=== PATIENT | male | born 1965 | race Two or more races ===

== ENCOUNTER 2017-10-03 09:31 | Inpatient (IN) | payer MEDICAID ==
[2017-10-03] MEDS ORDERED: NS 1,000 ML IV ONE ×2 (10:14→11:25)
[2017-10-03] MEDS ORDERED: ONDANSETRON 4 MG/2 ML VIAL IVP ONE ×2 (10:14→12:09)
[2017-10-03] MEDS ORDERED: LORazepam 2 MG/ML INJ IVP ONE (10:22)
--- NOTE | 2017-10-03 10:25 | EDPHY ---
H & P Time Seen by Provider: 10/03/17 10:10 HPI/ROS: CHIEF COMPLAINT: Vomiting HISTORY OF PRESENT ILLNESS: 52-year-old male presents with a 3 week history of vomiting. Onset of nausea and vomiting 3 weeks ago, having difficulty keeping oral fluids down since then. Associated with epigastric burning and loose stools. He feels hot during the episodes of vomiting, but no documented fever. Denies abdominal pain. No prior similar symptoms. He has a history of heavy alcohol use, but has been sober for past 4 months. REVIEW OF SYSTEMS: Constitutional: No fever, no chills Eyes: No visual changes ENT: No sore throat Respiratory: No cough, no shortness of breath Cardiac: No chest pain Gastrointestinal: no abdominal pain Genitourinary: No hematuria, no dysuria Musculoskeletal: No myalgias Skin: No rash Neurological: No headache Psychiatric: No depression Past Medical/Surgical History: Denies Social History: Homeless Smoking Status: Current every day smoker Physical Exam: General Appearance: Alert, pleasant Eyes: Pupils equal and round, no conjunctival pallor or injection ENT, Mouth: Mucous membranes moist Neck: Normal inspection Respiratory: Lungs are clear to auscultation Cardiovascular: Regular rate and rhythm Gastrointestinal: Abdomen is soft, mild epigastric tenderness Neurological: A&O, resting tremor in hands, nonfocal, normal gait Skin: Warm and dry, no rash Extremities: Nontender, no pedal edema Psychiatric: Mood and affect normal Constitutional: Initial Vital Signs Temperature (C) 36.5 C 10/03/17 09:59 Heart Rate 110 H 10/03/17 09:59 Respiratory Rate 16 10/03/17 09:59 Blood Pressure 192/172 H 10/03/17 09:59 O2 Sat (%) 97 10/03/17 09:59 O2 Delivery Mode Room Air Allergies/Adverse Reactions: acetaminophen [From Tylenol] Allergy (Verified 10/03/17 14:46) aspirin Allergy (Verified 10/03/17 14:46) ENVIRONMENTAL Allergy (Mild, Uncoded 10/03/17 09:58) Other-Enter Comments Home Medications: Medication Instructions Recorded NK [No Known Home Meds] 10/03/17 Medical Decision Making - Diagnostics Imaging Results: Abdomen Ultrasound 10/03/17 11:11 Impression: 1. No acute findings. 2. Fatty liver. Findings discussed with ELVIN KEY 10/03/2017 at 11:53. ED Course/Re-evaluation: This patient presents with prolonged vomiting. On physical exam, he does not appear dehydrated and he has a benign abdominal exam. IV normal saline 1 L and Zofran 4 mg IV given. Ativan 0.5 mg IV given because of a resting tremor in his hands and for vomiting. The tremors are concerning for alcohol withdrawal, though he denies alcohol use in the last 4 months. Right upper quadrant ultrasound ordered for hyperbilirubinemia. Noon-laboratory studies and ultrasound results discussed with the patient. He continues to feel nauseated. Zofran 4 mg IV and Phenergan 12.5 mg IV given. Will reassess after meds. Still vomiting after Zofran and Phenergan IV. Abdominal exam remains benign. Protonix 40 mg IV given and will plan to admit the patient for intractable vomiting. Clinical scenario consistent with acute gastritis, no evidence of surgical abdomen or need for CT scan. Hospitalist service was consulted for admission. Differential Diagnosis: Differential diagnosis includes though it is not limited to appendicitis, cholecystitis, diverticulitis, pyelonephritis, bowel perforation, small bowel obstruction. - Data Points Laboratory Results: Laboratory Results 10/03/17 10:15 10/03/17 10:15 Medications Given: Folic Acid (Folic Acid) 1 mg PO DAILY RONNY Stop: 04/02/18 08:59 Last Admin: 10/04/17 09:29 Dose: 1 mg Sodium Chloride (Ns) 1,000 mls @ 75 mls/hr IV CONT RONNY Stop: 04/01/18 15:14 Last Admin: 10/04/17 09:27 Dose: 1,000 mls Thiamine HCl 500 mg/ Sodium (Chloride) 255 mls @ 255 mls/hr IV DAILY RONNY Stop: 10/07/17 08:59 Last Admin: 10/04/17 09:28 Dose: 255 mls Lorazepam (Ativan) 1 mg PO Q4HRS PRN PRN Reason: Anxiety, Able to Take PO Stop: 04/01/18 15:07 Last Admin: 10/04/17 10:59 Dose: 1 mg Ondansetron HCl (Zofran) 4 mg IVP Q4HRS PRN PRN Reason: Nausea/Vomiting, Can't Take PO Stop: 04/02/18 02:59 Last Admin: 10/04/17 10:59 Dose: 4 mg Pantoprazole Sodium (Protonix) 40 mg IVP BID RONNY Stop: 04/01/18 20:59 Last Admin: 10/04/17 09:29 Dose: 40 mg Discontinued Medications Sodium Chloride (Ns) 1,000 mls @ 0 mls/hr IV ONCE ONE PRN Reason: Wide Open Stop: 10/03/17 10:15 Last Admin: 10/03/17 10:16 Dose: 1,000 mls Sodium Chloride (Ns) 1,000 mls @ 0 mls/hr IV ONCE ONE; Wide Open PRN Reason: Protocol Stop: 10/03/17 11:26 Last Admin: 10/03/17 11:41 Dose: 1,000 mls Magnesium Sulfate (Magnesium Sulf 2 Gm (Premix)) 50 mls @ 50 mls/hr IV ONCE ONE Stop: 10/03/17 17:49 Last Admin: 10/03/17 18:33 Dose: 50 mls Lorazepam (Ativan Injection) 0.5 mg IVP EDNOW ONE Stop: 10/03/17 10:23 Last Admin: 10/03/17 10:53 Dose: 0.5 mg Ondansetron HCl (Zofran) 4 mg IVP EDNOW ONE Stop: 10/03/17 10:15 Last Admin: 10/03/17 10:16 Dose: 4 mg Ondansetron HCl (Zofran) 4 mg IVP EDNOW ONE Stop: 10/03/17 12:10 Last Admin: 10/03/17 12:42 Dose: 4 mg Pantoprazole Sodium (Protonix) 40 mg PO EDNOW ONE Stop: 10/03/17 13:24 Last Admin: 10/03/17 14:00 Dose: 40 mg Pantoprazole Sodium (Protonix) 40 mg IVP EDNOW ONE Stop: 10/03/17 14:21 Last Admin: 10/03/17 14:27 Dose: Not Given Promethazine HCl (Phenergan) 12.5 mg IVP EDNOW ONE Stop: 10/03/17 12:10 Last Admin: 10/03/17 12:41 Dose: 12.5 mg Departure - Departure Disposition: [facility] Acute Clinical Impression: Acute gastritis Qualifiers: Gastritis type: unspecified gastritis Gastritis bleeding: without bleeding Qualified Code(s): K29.00 - Acute gastritis without bleeding Condition: Good
[2017-10-03 10:45] LABS: PLATELET COUNT 210 10^3/uL (150-400)
[2017-10-03] MEDS ORDERED: PROMETHAZINE HCL 25 MG/ML INJ IVP ONE (12:09)
[2017-10-03] MEDS ORDERED: PANTOPRAZOLE SODIUM 40 MG TAB PO ONE (13:23)
[2017-10-03] MEDS ORDERED: PANTOPRAZOLE SODIUM 40 MG VIAL IVP ONE (14:20)
--- NOTE | 2017-10-03 14:41 | ASMTLACE ---
JIM Acuity / Level of Answers: Yes Care: Did the patient have an inpatient admission? # of Emergency department Answers: 1-2 visits in the last 6 months Social determinants Answers: Homelessness (street, [facility]) Score: 7 Date Signed: 10/03/2017 02:40 PM Electronically Signed By:Keeley Quintana RN
[2017-10-03] MEDS ORDERED: PROTOCOL MAGNESIUM 1 DOSE IV PRN (15:07)
[2017-10-03] MEDS ORDERED: PROTOCOL POTASSIUM 1 DOSE MISC PRN (15:07)
[2017-10-03] MEDS ORDERED: LORazepam 2 MG/ML INJ IVP PRN (15:08)
[2017-10-03] MEDS ORDERED: MAGNESIUM SULF 2 GM/WATER 50 ML IV ONE (16:50)
--- NOTE | 2017-10-03 16:57 | PDGENHP ---
History and Physical - Chief Complaint EMESIS, MALAISE - History of Present Illness This is a 52 yo male with hx of homelessness and alcoholism who p/w worsening nausea and emesis and inability to keep PO downs for a few days. His last drink was on 09/27 and he appears to be in active WD. He feels cold, he is diaphoretic, he is tremulous. He reports a non productive cough x several days and feeling SOB. He denies fevers. He does not have leukocytosis. He is on RA. A CXR was not done. He denies any urinary sx's. BP is normal. He has mild tachycardia. RR is normal. He is not the best historian. He also c/o abd pain. No Diarrhea. No constipation. An abd US did not show acute pathology PMHx: Homelessness Alcoholism tobacco use PSHx: unknown SocHx: +Tobacco, +ETOH, homelessness FmHx: NC Lab/Data: reviewed Lipase normal No leukocytosis CMP Ok ABD US per above History Information - Allergies/Home Medication List Allergies/Adverse Reactions: acetaminophen [From Tylenol] Allergy (Verified 10/03/17 14:46) aspirin Allergy (Verified 10/03/17 14:46) ENVIRONMENTAL Allergy (Mild, Uncoded 10/03/17 09:58) Other-Enter Comments Home Medications: NK [No Known Home Meds] 10/03/17 [Last Taken Unknown] I have personally reviewed and updated: medical history, social history - Social History Smoking Status: Current every day smoker Review of Systems Review of Systems: ROS: 10pt was reviewed & negative except for what was stated in HPI & below Physical Exam Physical Exam: Temp Pulse Resp BP Pulse Ox 36.7 C 88 18 139/98 H 95 10/03/17 16:00 10/03/17 16:00 10/03/17 16:00 10/03/17 16:00 10/03/17 16:00 Constitutional: no apparent distress Eyes: PERRL, EOMI Ears, Nose, Mouth, Throat: dry mucous membranes Cardiovascular: tachycardia, No JVD, No edema Respiratory: no respiratory distress, reduced air movement, expiratory wheeze Gastrointestinal: normoactive bowel sounds Skin: warm Musculoskeletal: full muscle strength Neurologic: AAOx3, other (tremulous) Psychiatric: interacting appropriately, anxious, No encephalopathic Lymph, Heme, Immunologic: No petechiae Lab Data & Imaging Review 10/03/17 10:15 10/03/17 10:15 WBC 6.19 10^3/uL (3.80-9.50) 10/03/17 10:15 RBC 5.00 10^6/uL (4.40-6.38) 10/03/17 10:15 Hgb 15.3 g/dL (13.7-17.5) 10/03/17 10:15 Hct 43.4 % (40.0-51.0) 10/03/17 10:15 MCV 86.8 fL (81.5-99.8) 10/03/17 10:15 MCH 30.6 pg (27.9-34.1) 10/03/17 10:15 MCHC 35.3 g/dL (32.4-36.7) 10/03/17 10:15 RDW 15.7 % (11.5-15.2) H 10/03/17 10:15 Plt Count 210 10^3/uL (150-400) 10/03/17 10:15 MPV 10.4 fL (8.7-11.7) 10/03/17 10:15 Neut % (Auto) 70.9 % (39.3-74.2) 10/03/17 10:15 Lymph % (Auto) 17.6 % (15.0-45.0) 10/03/17 10:15 [place] % (Auto) 10.2 % (4.5-13.0) 10/03/17 10:15 Eos % (Auto) 0.2 % (0.6-7.6) L 10/03/17 10:15 Baso % (Auto) 0.8 % (0.3-1.7) 10/03/17 10:15 Nucleat RBC Rel Count 0.0 % (0.0-0.2) 10/03/17 10:15 Absolute Neuts (auto) 4.39 10^3/uL (1.70-6.50) 10/03/17 10:15 Absolute Lymphs (auto) 1.09 10^3/uL (1.00-3.00) 10/03/17 10:15 Absolute Monos (auto) 0.63 10^3/uL (0.30-0.80) 10/03/17 10:15 Absolute Eos (auto) 0.01 10^3/uL (0.03-0.40) L 10/03/17 10:15 Absolute Basos (auto) 0.05 10^3/uL (0.02-0.10) 10/03/17 10:15 Absolute Nucleated RBC 0.00 10^3/uL (0-0.01) 10/03/17 10:15 Immature Gran % 0.3 % (0.0-1.1) 10/03/17 10:15 Immature Gran # 0.02 10^3/uL (0.00-0.10) 10/03/17 10:15 Sodium 137 mEq/L (135-145) 10/03/17 10:15 Potassium 4.0 mEq/L (3.5-5.2) 10/03/17 10:15 Chloride 100 mEq/L (97-110) 10/03/17 10:15 Carbon Dioxide 19 mEq/l (22-31) L 10/03/17 10:15 Anion Gap 18 mEq/L (8-16) H 10/03/17 10:15 BUN 7 mg/dL (7-23) 10/03/17 10:15 Creatinine 0.9 mg/dL (0.7-1.3) 10/03/17 10:15 Estimated GFR > 60 10/03/17 10:15 Glucose 123 mg/dL (70-100) H 10/03/17 10:15 Calcium 9.9 mg/dL (8.5-10.4) 10/03/17 10:15 Magnesium 1.5 mg/dL (1.6-2.3) L 10/03/17 10:15 Total Bilirubin 3.2 mg/dL (0.1-1.4) H 10/03/17 10:15 Conjugated Bilirubin 0.5 mg/dL (0.0-0.5) 10/03/17 10:15 Unconjugated Bilirubin 2.7 mg/dL (0.0-1.1) H 10/03/17 10:15 AST 35 IU/L (17-59) 10/03/17 10:15 ALT 24 IU/L (21-72) 10/03/17 10:15 Alkaline Phosphatase 105 IU/L (38-126) 10/03/17 10:15 Total Protein 8.3 g/dL (6.3-8.2) H 10/03/17 10:15 Albumin 4.8 g/dL (3.5-5.0) 10/03/17 10:15 Lipase 161 IU/L (23-300) 10/03/17 10:15 Ethyl Alcohol < 10 mg/dL (0-10) 10/03/17 10:15 Assessment & Plan Assessment: #Acute ETOH WD #Cough, Viral Symptoms #N/V #Dehydration Plan: -CIWA, will provide Ativan -IVF -check Mg, replace PRN -check EKG now to r/o Long QT syndrome -Antiemetics, Zofran if he is able to take -PPI -check influenza -check CXR -SCD's -Full code 50 mins of Critical care time spent on this patient with acute onset of ETOH WD in active WD who is tachycardic and has dehydration
[2017-10-03] MEDS ORDERED: ALBUTEROL 3 ML DEYVIAL IH PRN (17:03)
[2017-10-03] MEDS: NS 1,000 ML IV SCH (18:12)
[2017-10-03] MEDS: PANTOPRAZOLE SODIUM 40 MG VIAL IVP SCH (20:34)
--- NOTE | 2017-10-04 03:11 | CPEKG ---
Heart Rate: 59 RR Interval: 1017 P-R Interval: 128 QRSD Interval: 84 QT Interval: 444 QTC Interval: 440 P [place]: 65 QRS [place]: 59 T Wave [place]: 34 EKG Severity - BORDERLINE ECG - EKG Impression: SINUS RHYTHM EKG Impression: BORDERLINE T WAVE ABNORMALITIES Electronically Signed By: Tan Madrigal 06-Oct-2017 08:25:41
[2017-10-04] MEDS: ONDANSETRON 4 MG/2 ML VIAL IVP PRN ×3 (03:16→16:48)
[2017-10-04] MEDS: LORazepam 1 MG TAB PO PRN ×4 (03:20→20:40)
[2017-10-04 04:34] LABS: PLATELET COUNT 147 10^3/uL (150-400)
--- NOTE | 2017-10-04 08:42 | HOSPPROG ---
Hospitalist Progress Note Assessment/Plan: #Acute Etoh w/d: CIWA #N/V: PRN anti-emetics. may be viral gasteroenteritis #Diarrhea: GI PCR pending #Hypomagnesium: replete per protocol #URI sxs: negative flu #Homelessness: CM to arrange assisted at [place] #Weakness: PT/OT #Diet: clears, ADAT #Disp: warrants inpatient admission for IVFs, electrolytes Subjective: vomiting and loose stools this morning Objective: Vital Signs Temp Pulse Resp BP Pulse Ox 36.6 C 73 16 119/75 97 10/04/17 04:31 10/04/17 04:31 10/04/17 04:31 10/04/17 04:31 10/04/17 04:31 Laboratory Results 10/04/17 03:28 10/04/17 03:28 10/03/17 10/04/17 10/05/17 05:59 05:59 05:59 Intake Total 3766.4 Output Total 1200 Balance 2566.4 - Physical Exam Constitutional: unkempt Eyes: PERRL Ears, Nose, Mouth, Throat: dry mucous membranes Cardiovascular: regular rate and rhythym, no murmur, rub, or gallop, tachycardia Respiratory: no respiratory distress, no rales or rhonchi Gastrointestinal: normoactive bowel sounds, soft, non-tender abdomen Genitourinary: no bladder fullness, No dawson in urethra Skin: warm Musculoskeletal: full muscle strength Neurologic: AAOx3, CN II-XII Intact, other (no tremor or tongue fasciculation) Psychiatric: interacting appropriately ICD10 Worksheet Patient Problems: Problems Problem Status Onset Acute gastritis Acute Alcoholism Acute
[2017-10-04] MEDS: NS 1,000 ML IV SCH (09:27)
[2017-10-04] MEDS: THIAMINE HCL 500 MG in NS 250 ML IV SCH (09:28)
[2017-10-04] MEDS: PANTOPRAZOLE SODIUM 40 MG VIAL IVP SCH ×2 (09:29→20:40)
[2017-10-04] MEDS: FOLIC ACID 1 MG TAB PO SCH (09:29)
--- NOTE | 2017-10-04 10:54 | PDMN ---
Medical Necessity Medical necessity: est los>2mn for acute etoh withdrawal, cough, viral syndrome , N/V, and dehydration; admit for IVF, CIWA, IV PPI and anti-emetics; hx homelessness; per order and H&P 10/03/17
--- NOTE | 2017-10-04 11:53 | ASMTCASEMG ---
Living Arrangements What is your living Answers: Alone arrangement? Who do you live with? Type Of Residence What kind of residence do Answers: Homeless you live in? Discharge Plan Comments Coordination Status Comments Notes: Discussed pts case in morning rounds. Pt is a 52 y/o man admitted for persistent vomiting. Pt has a hx of ETOH. CM met w/ pt to provide resources. Pt reports that he drinks once a month. Pt reports that when he drinks he drinks in moderation. Pt would like a reserved long-term bed and a bus pass when medically stable to d/c. Therapies have been ordered. CM available for d/c needs. Plan: Most likely independent to the long-term Plan: Independent Date Signed: 10/04/2017 11:53 AM Electronically Signed By:REGIS Vidal
[2017-10-04] MEDS ORDERED: POTASSIUM CL 10 MEQ TAB PO ONE ×2 (14:03→14:30)
[2017-10-05] MEDS: NS 1,000 ML IV SCH (03:31)
[2017-10-05] MEDS: ONDANSETRON 4 MG/2 ML VIAL IVP PRN ×2 (08:00→14:33)
[2017-10-05] MEDS: PANTOPRAZOLE SODIUM 40 MG VIAL IVP SCH ×2 (08:00→23:48)
[2017-10-05] MEDS: THIAMINE HCL 500 MG in NS 250 ML IV SCH (11:46)
[2017-10-05] MEDS: LORazepam 1 MG TAB PO PRN ×2 (11:46→22:03)
[2017-10-05] MEDS: FOLIC ACID 1 MG TAB PO SCH (11:46)
--- NOTE | 2017-10-05 13:31 | HOSPPROG ---
Hospitalist Progress Note Assessment/Plan: #Acute Etoh w/d: CIWA #N/V: PRN anti-emetics. may be viral gasteroenteritis #Diarrhea: GI PCR negative #Dehydration: IVF #Hypomagnesium: replete per protocol #URI sxs: negative flu #Homelessness: CM to arrange fpc at [place] #Weakness: PT/OT #Diet: clears, ADAT #Disp: warrants inpatient admission for IVFs, electrolytes Plan: Cont with IV PPI, not tolerating PO well Cont with IVF symptom mgmt improving slowly ADAT to regular Subjective: still with Nause and emesis. Not tolerating good PO. However he is requesting we advance diet. Some bilateral hand tremor. Objective: Vital Signs Temp Pulse Resp BP Pulse Ox 37.0 C 75 12 130/86 H 97 10/05/17 10:58 10/05/17 10:58 10/05/17 10:58 10/05/17 10:58 10/05/17 10:58 Microbiology 10/04/17 16:35 Gastrointestinal Tract Panel (PCR) - Final Stool No Organism Detected Laboratory Results 10/05/17 03:25 10/05/17 03:25 10/04/17 10/05/17 10/06/17 05:59 05:59 05:59 Intake Total 3766.4 4029 Output Total 1200 2600 600 Balance 2566.4 1429 -600 - Physical Exam Constitutional: no apparent distress Eyes: PERRL Ears, Nose, Mouth, Throat: moist mucous membranes Cardiovascular: regular rate and rhythym, No edema Respiratory: no respiratory distress Gastrointestinal: normoactive bowel sounds, soft, non-tender abdomen Skin: warm Neurologic: AAOx3 Psychiatric: interacting appropriately, not anxious, not encephalopathic Lymph, Heme, Immunologic: No petechiae ICD10 Worksheet Patient Problems: Problems Problem Status Onset Acute gastritis Acute Alcoholism Acute
--- NOTE | 2017-10-05 14:51 | ASMTCMCOM ---
CM Note CM Note Notes: 10/05/2017 Case Management Note Reviewed pt during rounds. Pt requesting reserved bed in [facility]. Case Management only able to reserve [facility] bed in [place]. Unable to provide a cab voucher to [place], case management will provide a bus pass to the [facility] at d.c Case Management d/c poc: To [facility] on reserved bed w/bus pass. Case Management to follow. Date Signed: 10/05/2017 02:50 PM Electronically Signed By:Amarilys Beltran RN
[2017-10-05] MEDS ORDERED: MAGNESIUM SULF 1 GM/DEXTROSE 100 ML IV ONE (16:07)
[2017-10-06] MEDS: PANTOPRAZOLE SODIUM 40 MG VIAL IVP SCH ×2 (08:57→20:22)
[2017-10-06] MEDS: FOLIC ACID 1 MG TAB PO SCH (08:57)
[2017-10-06] MEDS: THIAMINE HCL 500 MG in NS 250 ML IV SCH (10:13)
[2017-10-06] MEDS: ONDANSETRON 4 MG/2 ML VIAL IVP PRN (10:17)
--- NOTE | 2017-10-06 12:27 | HOSPPROG ---
Hospitalist Progress Note Assessment/Plan: #Acute Etoh w/d: CIWA, scoring minimally at this point #N/V: PRN anti-emetics. may be viral gasteroenteritis #Diarrhea: GI PCR negative #Dehydration: IVF to stop today #Hypomagnesium: replete per protocol #URI sxs: negative flu #Homelessness: CM to arrange fci at [place] #Weakness: PT/OT #Cough: check CXR #Diet: clears, ADAT #Disp: warrants inpatient admission for IVFs, electrolytes Plan: He cont to have emesis, schedule IV Zofran Cont with IV PPI, not tolerating PO well. Stop IVF, he is tolerating some fluid symptom mgmt improving slowly Regular diet Subjective: + cough. + emesis. Still not tolerating PO well. Objective: Vital Signs Temp Pulse Resp BP Pulse Ox 36.9 C 79 14 110/85 H 97 10/06/17 08:13 10/06/17 08:13 10/06/17 08:13 10/06/17 08:13 10/06/17 08:13 Laboratory Results 10/05/17 03:25 10/06/17 06:15 10/05/17 10/06/17 10/07/17 05:59 05:59 05:59 Intake Total 4029 1780 Output Total 2600 3170 500 Balance 1429 -1390 -500 - Physical Exam Constitutional: no apparent distress, not in pain Eyes: PERRL, EOMI Ears, Nose, Mouth, Throat: moist mucous membranes, hearing normal Cardiovascular: regular rate and rhythym Respiratory: no respiratory distress Gastrointestinal: normoactive bowel sounds, soft, non-tender abdomen Genitourinary: no bladder fullness Skin: warm Neurologic: AAOx3 Psychiatric: interacting appropriately, not anxious, not encephalopathic Lymph, Heme, Immunologic: No petechiae ICD10 Worksheet Patient Problems: Problems Problem Status Onset Acute gastritis Acute Alcoholism Acute
[2017-10-06] MEDS: ONDANSETRON 4 MG/2 ML VIAL IVP SCH ×3 (13:37→20:21)
[2017-10-06] MEDS: THIAMINE HCL 100 MG TAB PO SCH (17:24)
[2017-10-06] MEDS ORDERED: POTASSIUM CL 10 MEQ TAB PO ONE (23:10)
[2017-10-06] MEDS: LORazepam 1 MG TAB PO PRN (23:23)
[2017-10-07 05:05] LABS: PLATELET COUNT 164 10^3/uL (150-400)
[2017-10-07] MEDS: ONDANSETRON 4 MG/2 ML VIAL IVP SCH (09:21)
[2017-10-07] MEDS: FOLIC ACID 1 MG TAB PO SCH (09:23)
[2017-10-07] MEDS: PANTOPRAZOLE SODIUM 40 MG VIAL IVP SCH (09:23)
[2017-10-07] MEDS: THIAMINE HCL 100 MG TAB PO SCH (09:24)
[2017-10-07] MEDS ORDERED: MAGNESIUM SULF 1 GM/DEXTROSE 100 ML IV ONE (09:26)
--- NOTE | 2017-10-07 14:07 | HOSPPROG ---
Hospitalist Progress Note Assessment/Plan: #Acute Etoh w/d: CIWA, scoring minimally at this point #N/V: PRN anti-emetics. may be viral gasteroenteritis #Diarrhea: GI PCR negative #Dehydration: resolved #Hypomagnesium: replete per protocol #URI sxs: negative flu #Homelessness: CM to arrange skilled nursing at [place] #Weakness: PT/OT #Cough: check CXR #Diet: clears, ADAT #Disp: warrants inpatient admission for IVFs, electrolytes Plan: Hemodynamically he is stable Hydration status appears much improved He reports ongoing nausea and emesis Will stop scheduled Zofran and cover with PRN PPI has been changed to PO Regular diet is there a secondary gain? Subjective: reports nausea, but has been able to eat. Overall he says he is starting to feel better. no cp or sob. On RA Objective: Vital Signs Temp Pulse Resp BP Pulse Ox 36.6 C 71 18 127/82 H 96 10/07/17 08:29 10/07/17 08:29 10/07/17 08:29 10/07/17 08:29 10/07/17 08:29 Laboratory Results 10/07/17 04:40 10/07/17 04:40 10/06/17 10/07/17 10/08/17 05:59 05:59 05:59 Intake Total 1780 1855 500 Output Total 3170 500 Balance -1390 1355 500 - Physical Exam Constitutional: no apparent distress Eyes: PERRL Ears, Nose, Mouth, Throat: moist mucous membranes, hearing normal Cardiovascular: regular rate and rhythym, no murmur, rub, or gallop Respiratory: no respiratory distress Gastrointestinal: normoactive bowel sounds, soft, non-tender abdomen, No tenderness, No ascites, No madison's sign, No hepatosplenomegally, No guarding, No rebound, No distension Skin: warm Musculoskeletal: full muscle strength Neurologic: AAOx3 Psychiatric: interacting appropriately, not anxious, not encephalopathic ICD10 Worksheet Patient Problems: Problems Problem Status Onset Acute gastritis Acute Alcoholism Acute
[2017-10-07] MEDS: MBX SOLN 30 ML BOTTLE PO PRN ×2 (17:37→22:46)
[2017-10-07] MEDS: PANTOPRAZOLE SODIUM 40 MG TAB PO SCH (22:46)
[2017-10-07] MEDS: LORazepam 1 MG TAB PO PRN (22:46)
[2017-10-08] MEDS: LORazepam 1 MG TAB PO PRN ×2 (02:57→09:44)
[2017-10-08] MEDS: MBX SOLN 30 ML BOTTLE PO PRN ×3 (02:57→14:38)
[2017-10-08 04:24] VITALS: RESP 16
[2017-10-08] MEDS: THIAMINE HCL 100 MG TAB PO SCH (09:29)
[2017-10-08] MEDS: FOLIC ACID 1 MG TAB PO SCH (09:29)
[2017-10-08] MEDS: PANTOPRAZOLE SODIUM 40 MG TAB PO SCH (09:29)
[2017-10-08 09:31] VITALS: BP 133/89; PULSE 86; TEMP 98.1; O2SAT 91
--- NOTE | 2017-10-08 11:43 | PDDCSUM ---
Discharge Summary Discharge Summary: DISCHARGE SUMMARY FOLLOW-UP ITEMS: Follow up with outpatient primary care provider this week DATE OF ADMISSION: 10/03/2017 DATE OF DISCHARGE: 10/08/2017 DISCHARGE DIAGNOSES: 1. Acute alcohol withdrawal 2. Acute nausea and vomiting most likely secondary to alcohol induced gastritis 3. Acute hypomagnesemia 4. Possible viral syndrome URI CONSULTATIONS: None PROCEDURES / IMAGING: Chest x-ray demonstrating no infiltrate CHIEF COMPLAINT: Acute nausea vomiting cough SUBJECTIVE: Patient is feeling well at time of discharge, he is tolerating an oral diet, he is able to ambulate safely PHYSICAL EXAM ON DISCHARGE: Systolic blood pressure is 115, rate 60-100, negative orthostatics, satting well on room air, afebrile overnight, alert awake oriented x3, lungs are clear to auscultation on inspiration and expiration, heart rhythm is regular, not tachycardic, abdomen is soft, mild tenderness in the right upper quadrant, none in the mid epigastric area, no tremulousness, no asterixis LABS ON DISCHARGE: Tox screen positive for marijuana, influenza a and B negative, GI PCR negative HOSPITAL COURSE BY PROBLEM: 1. Acute alcohol withdrawal. Evidenced by tremulousness, nausea vomiting, alcohol level negative on presentation, patient desires sobriety and he was treated with CIWA scoring protocol and as needed Ativan. At the time of discharge, the patient is no longer demonstrating any active evidence of withdrawal and he is safe discharge. Recommended complete sobriety. Recommend follow up with his primary care provider for this issue. 2. Suspected alcohol induced gastritis. The patient's nausea and vomiting may be secondary to either alcohol withdrawal, viral syndrome, or alcohol induced gastritis. Recommended scheduled PPI for the next month, given the likelihood of gastritis, as well as alcohol abstinence. 3. Possible viral syndrome URI. GI PCR negative, influenza a and B negative, no respiratory viral panel was sent, patient was treated supportively and his symptoms have resolved at time discharge. He has no evidence of reactive airways on examination. He will be discharged with as needed Zofran. The patient is at risk for exposure related symptoms and we offered to secure the patient a bed at the [facility], he declined, prefers to go to [facility]. 4. Acute hypomagnesemia. Patient was repleted with protocol. DISCHARGE MEDICATIONS: Please see official discharge medication reconciliation sheet in chart , continue as needed Zofran, scheduled pantoprazole times 30 days. DISCHARGE INSTRUCTIONS: Please maintain alcohol sobriety. TIME SPENT: Greater than 30 minutes were spent on direct patient care, as well as discharge planning and preparation.
== END 2017-10-08 15:12 | disposition home or self-care (01) | DRG 897 ==
LOC: OBSVTOIN 15:09 → F2W 17:09 → F1N 10-06 18:01
PROVIDERS: ADMIT Family Medicine; ATTEND Internal Medicine
PROC: HZ2ZZZZ Detoxification Services for Substance Abuse Treatment (ICD-10-PCS; principal; 2017-10-03)
DX: F10.239 Alcohol dependence with withdrawal, unspecified (principal); K29.20 Alcoholic gastritis without bleeding; R11.2 Nausea with vomiting, unspecified; R25.1 Tremor, unspecified; J06.9 Acute upper respiratory infection, unspecified; R05 Cough; E83.42 Hypomagnesemia; E86.0 Dehydration; R19.7 Diarrhea, unspecified; F17.210 Nicotine dependence, cigarettes, uncomplicated; Z59.0 Homelessness
CPT/HCPCS: 80307; 96374; G0480; J2060; J2405; J2550; J3411; J3475

== ENCOUNTER 2018-02-22 18:13 | Emergency (ER) | payer MEDICAID ==
--- NOTE | 2018-02-22 18:19 | EDPHY ---
H & P Smoking Status: Current every day smoker Time Seen by Provider: 02/22/18 18:18 HPI/ROS: CHIEF COMPLAINT: Vomiting for 6 months HISTORY OF PRESENT ILLNESS: Patient is a regular alcohol drinker he has been drinking today. He describes intermittent vomiting for the past 6 months, not hematemesis or coffee-ground emesis. No melena. Associated with intermittent right upper quadrant abdominal pain. He says he finally was able to"find the hospital today"and that is why he decided to come in now. He says he has a history of migraine headaches and has a mild headache which was not thunderclap in onset or worst of life. REVIEW OF SYSTEMS: Eye: no change in vision ENT: no sore throat Cardiac: no chest pain or syncope Pulmonary: no cough or SOB Abdomen: HPI no diarrhea Musculoskeletal: no back pain Skin: no rash Neuro: Mild headache Constitutional: no fever : no urinary symptoms A comprehensive 10 point review of systems is otherwise negative aside from elements mentioned in the history of present illness. PAST MEDICAL HISTORY: Includes alcoholism, history and physical in September of this year personally reviewed Social history: Still drinks alcohol, 2 [employer] today. General Appearance: Alert and conversant, cooperative. Eyes: No scleral icterus. ENT, Mouth: Normal mucous membranes. No facial swelling or tenderness. Respiratory: Normal respiratory effort, breath sounds equal, lungs are clear to auscultation. Cardiovascular: Regular rate and rhythm. Tachycardic. Gastrointestinal: Abdomen is soft and non tender. No McBurney's point tenderness or Antonio sign. Neurological: Alert, face symmetric, normal motor and sensory in extremities. Not tremulous Skin: Warm and dry, no rashes. Musculoskeletal: No peripheral edema. No meningeal signs, normal range of motion of the neck. Psychiatric: Not agitated. Emergency Department course/MDM: Reglan 10 and Benadryl 50, normal saline IV hydration, labs to include CBC chemistry LFT and lipase. 1909: Re-examined, no headache, not actively vomiting, wants to go to sleep. Labs discussed, plan to treat symptomatically and rehydrate then discharge. Signed out to Manohar at 1945 with plan for serial exams. (Ronni Levine) Constitutional: Initial Vital Signs Temperature (C) 36.9 C 02/22/18 18:29 Heart Rate 106 H 02/22/18 18:29 Respiratory Rate 18 02/22/18 18:29 Blood Pressure 133/90 H 02/22/18 18:29 O2 Sat (%) 92 02/22/18 18:29 O2 Delivery Mode Room Air Allergies/Adverse Reactions: acetaminophen [From Tylenol] Allergy (Verified 10/03/17 14:46) aspirin Allergy (Verified 10/03/17 14:46) ENVIRONMENTAL Allergy (Mild, Uncoded 10/03/17 09:58) Other-Enter Comments Home Medications: Medication Instructions Recorded Ondansetron [Ondansetron Odt] 4 mg PO Q4 PRN #20 tab.rapdis 10/08/17 Pantoprazole Sodium [Protonix 40mg 40 mg PO DAILY #30 tab 10/08/17 (*)] Medical Decision Making Differential Diagnosis: Differential diagnosis considered for nausea and vomiting including but not limited to intracranial problem, pancreatitis, gastroenteritis, gastritis, appendicitis, and medication side effect. (Rnoni Levine) - Data Points Laboratory Results: Laboratory Results 02/22/18 18:28 02/22/18 18:28 02/22/18 02/22/18 18:28 18:28 WBC 6.83 10^3/uL 10^3/uL (3.80-9.50) RBC 4.24 10^6/uL L 10^6/uL (4.40-6.38) Hgb 14.0 g/dL g/dL (13.7-17.5) Hct 40.3 % % (40.0-51.0) MCV 95.0 fL fL (81.5-99.8) MCH 33.0 pg pg (27.9-34.1) MCHC 34.7 g/dL g/dL (32.4-36.7) RDW 13.8 % % (11.5-15.2) Plt Count 189 10^3/uL 10^3/uL (150-400) MPV 10.3 fL fL (8.7-11.7) Neut % (Auto) 50.6 % % (39.3-74.2) Lymph % (Auto) 41.3 % % (15.0-45.0) [place] % (Auto) 6.1 % % (4.5-13.0) Eos % (Auto) 0.9 % % (0.6-7.6) Baso % (Auto) 1.0 % % (0.3-1.7) Nucleat RBC Rel Count 0.0 % % (0.0-0.2) Absolute Neuts (auto) 3.45 10^3/uL 10^3/uL (1.70-6.50) Absolute Lymphs (auto) 2.82 10^3/uL 10^3/uL (1.00-3.00) Absolute Monos (auto) 0.42 10^3/uL 10^3/uL (0.30-0.80) Absolute Eos (auto) 0.06 10^3/uL 10^3/uL (0.03-0.40) Absolute Basos (auto) 0.07 10^3/uL 10^3/uL (0.02-0.10) Absolute Nucleated RBC 0.00 10^3/uL 10^3/uL (0-0.01) Immature Gran % 0.1 % % (0.0-1.1) Immature Gran # 0.01 10^3/uL 10^3/uL (0.00-0.10) Sodium 135 mEq/L mEq/L (135-145) Potassium 4.1 mEq/L mEq/L (3.3-5.0) Chloride 103 mEq/L mEq/L (97-110) Carbon Dioxide 19 mEq/l L mEq/l (22-31) Anion Gap 13 mEq/L mEq/L (8-16) BUN 9 mg/dL mg/dL (7-23) Creatinine 1.1 mg/dL mg/dL (0.7-1.3) Estimated GFR > 60 Glucose 97 mg/dL mg/dL (70-100) Calcium 8.9 mg/dL mg/dL (8.5-10.4) Total Bilirubin 0.7 mg/dL mg/dL (0.1-1.4) Conjugated Bilirubin 0.4 mg/dL mg/dL (0.0-0.5) Unconjugated Bilirubin 0.3 mg/dL mg/dL (0.0-1.1) AST 43 IU/L IU/L (17-59) ALT 38 IU/L IU/L (21-72) Alkaline Phosphatase 79 IU/L IU/L (38-126) Total Protein 7.8 g/dL g/dL (6.3-8.2) Albumin 4.3 g/dL g/dL (3.5-5.0) Lipase 371 IU/L H IU/L (23-300) Ethyl Alcohol 298 mg/dL H mg/dL (0-10) Medications Given: Discontinued Medications Diphenhydramine HCl (Benadryl Injection) 50 mg IVP EDNOW ONE Stop: 02/22/18 18:26 Last Admin: 02/22/18 18:33 Dose: 50 mg Sodium Chloride (Ns) 1,000 mls @ 0 mls/hr IV EDNOW ONE; Wide Open PRN Reason: Protocol Stop: 02/22/18 18:26 Last Admin: 02/22/18 18:33 Dose: 1,000 mls Sodium Chloride (Ns) 1,000 mls @ 0 mls/hr IV EDNOW ONE; Wide Open PRN Reason: Protocol Stop: 02/22/18 19:20 Last Admin: 02/22/18 19:35 Dose: 1,000 mls Metoclopramide HCl (Reglan Injection) 10 mg IVP EDNOW ONE Stop: 02/22/18 18:26 Last Admin: 02/22/18 18:33 Dose: 10 mg Departure - Departure Disposition: Home, Routine, Self-Care Clinical Impression: Nausea & vomiting, Alcohol intoxication Condition: Good Instructions: Alcohol Intoxication (ED), Acute Nausea and Vomiting (ED) Referrals: [facility],. [Clinic] - As per Instructions
[2018-02-22] MEDS ORDERED: METOCLOPRAMIDE 10 MG/2 ML VIAL IVP ONE (18:25)
[2018-02-22] MEDS ORDERED: NS 1,000 ML IV ONE ×2 (18:25→19:19)
[2018-02-22 18:39] LABS: PLATELET COUNT 189 10^3/uL (150-400)
[2018-02-22 20:51] VITALS: BP 105/72
== END 2018-02-22 21:05 | disposition home or self-care (01) ==
DX: R11.2 Nausea with vomiting, unspecified (principal); F10.129 Alcohol abuse with intoxication, unspecified; E86.9 Volume depletion, unspecified; F17.200 Nicotine dependence, unspecified, uncomplicated
CPT/HCPCS: 96374; G0480; J1200; J2765